=== PATIENT | male | born 1940 | race Caucasian/White ===

== ENCOUNTER → 2017-03-02 | Outpatient (CLI) | payer MEDICARE, OTHER ==
[~2017-03-02] MED LIST: ASPI-496 PO; CEPH-368 PO; CHOL200012 PO; CLOP75TA PO; DONE5TAB7 PO; DOXY100T PO; DULO20CA45 PO; FINA5TAB4 PO; GABA-827 PO; HYDR-3240 PO; INSULIN SC; ISOS60TA36 PO; METH750T87 PO; METO25TA91 PO; NITR0.4T8 SL; PANT40TA5 PO; RANO10002 PO
[2017-03-02 16:32] LABS: BLOOD UREA NITROGEN 24 mg/dL (7-18); C-REACTIVE PROTEIN, QUANT 0.37 mg/dL (0.02-0.49)
[2017-03-03 10:30] LABS: RHEUMATOID FACTOR SCREEN NEGATIVE (NEGATIVE)
== END | disposition home or self-care (01) ==
LOC: RAD 15:47
PROVIDERS: ATTEND Orthopaedic Surgery Foot and Ankle Surgery
DX: S82.872S Displaced pilon fracture of left tibia, sequela (principal); M85.80 Other specified disorders of bone density and structure, unspecified site; M25.472 Effusion, left ankle; X58.XXXS Exposure to other specified factors, sequela
CPT/HCPCS: 36415; 80048; 81374; 84550; 85025; 85651; 86038; 86140; 86430

== ENCOUNTER → 2017-03-16 | Outpatient (CLI) | payer MEDICARE, OTHER ==
[~2017-03-16] MED LIST changes: +ATOR80TA75 PO; +CHOL100018 PO; +GABA300S PO; +GALA8TAB PO; +INSU100I13 SQ; +LIRA0.6P SQ; +RANO500T2 PO
== END | disposition home or self-care (01) ==
LOC: STAR 11:18
PROVIDERS: ATTEND Orthopaedic Surgery Foot and Ankle Surgery
DX: Z01.810 Encounter for preprocedural cardiovascular examination (principal); I49.3 Ventricular premature depolarization; S82.872S Displaced pilon fracture of left tibia, sequela; E11.9 Type 2 diabetes mellitus without complications
CPT/HCPCS: 93005

== ENCOUNTER 2017-03-24 09:31 | Inpatient (IN) | payer MEDICARE, OTHER ==
[~2017-03-24] VITALS: Ht 162.6 cm; Wt 97.3 kg
[~2017-03-24 09:31] MED LIST changes: +FENTANYL PF 250 MCG/5ML ONE; +MIDAZOLAM 1 MG/ML, 2ML ONE
[2017-03-24 09:56] VITALS: BP 136/108
[2017-03-24] MEDS ORDERED: LACTATED RINGERS 1,000 ML IV SCH (10:13)
[2017-03-24] MEDS ORDERED: METOPROLOL TARTRATE 25 MG TABLET PO ONE (11:08)
[2017-03-24] MEDS ORDERED: ISOSORBIDE MONONITRATE ER 60 MG TABLET PO SCH (11:08)
[2017-03-24] MEDS ORDERED: INSULIN REGULAR 100 UNITS/ML, 3ML VIAL SQ-INSULIN ONE (11:14)
[2017-03-24] MEDS ORDERED: ROPIvacaine/PF 0.5%, 20 ML ONE (11:15)
[2017-03-24] MEDS ORDERED: BUPIVACAINE/PF 0.5% ONE (11:15)
[2017-03-24] MEDS ORDERED: INSULIN REGULAR 100 UNITS/ML, 3ML VIAL IV STA (11:27)
[2017-03-24] MEDS ORDERED: INSULIN SINGLE DOSE, ER SQ-INSULIN ONE ×2 (11:37→11:39)
[2017-03-24] MEDS ORDERED: DEXMEDETOMIDINE 200 MCG/2 ML ONE (11:37)
[2017-03-24] MEDS ORDERED: PROPOFOL 10 MG/ML, 20ML ONE (11:39)
[2017-03-24] MEDS ORDERED: INSULIN REGULAR 100 UNITS/ML, 3ML VIAL IV ONE (11:39)
[2017-03-24] MEDS ORDERED: CEFAZOLIN 1,000 MG ONE (11:39)
[2017-03-24] MEDS ORDERED: ONDANSETRON 2MG/ML, 2ML ONE (11:39)
[2017-03-24] MEDS ORDERED: MIDAZOLAM 1 MG/ML, 2ML IV PRN (12:30)
[2017-03-24] MEDS ORDERED: HYDROcodone/APAP 7.5-325MG/15ML UDC PO PRN (12:30)
[2017-03-24] MEDS ORDERED: ACETAMINOPHEN 325 MG TABLET PO PRN (12:30)
[2017-03-24] MEDS ORDERED: FENTANYL PF 100 MCG/2ML IV PRN (12:30)
[2017-03-24] MEDS ORDERED: HYDROmorphone 1 MG/ML, 1ML IV PRN (12:30)
[2017-03-24] MEDS ORDERED: EPHEDRINE 50 MG/ML, 1ML IVPush PRN (12:30)
[2017-03-24] MEDS ORDERED: OXYcodone 5 MG/5 ML ORAL.SOL UDC PO PRN ×2 (12:30→16:00)
[2017-03-24] MEDS ORDERED: hydrALAzine 20 MG/ML, 1ML IV PRN (12:30)
[2017-03-24] MEDS ORDERED: ONDANSETRON 2MG/ML, 2ML IVPush PRN (12:30)
[2017-03-24] MEDS ORDERED: PROMETHAZINE 25 MG/ML, 1ML IV PRN (12:30)
[2017-03-24] MEDS ORDERED: LABETALOL 5MG/ML, 20ML IV PRN (12:30)
[2017-03-24] MEDS ORDERED: ONDANSETRON 2MG/ML, 2ML IV PRN (16:00)
[2017-03-24] MEDS ORDERED: BISACODYL 10 MG SUPP PR PRN (16:00)
[2017-03-24] MEDS ORDERED: DIPHENHYDRAMINE 25 MG CAPSULE PO PRN (16:00)
[2017-03-24] MEDS ORDERED: VANCOMYCIN PMX 1GM/200ML 200 ML IVPB ONE (16:00)
[2017-03-24] MEDS ORDERED: SENNA/DOCUSATE TABLET PO PRN (16:00)
[2017-03-24] MEDS ORDERED: HYDROmorphone 1 MG/ML, 1ML IM PRN (16:00)
[2017-03-24] MEDS ORDERED: PROMETHAZINE 25 MG/ML, 1ML IM PRN (16:00)
[2017-03-24] MEDS ORDERED: NITROGLYCERIN 0.4 MG BOTTLE (25 TABS) SL PRN (16:30)
[2017-03-24] MEDS ORDERED: INSULIN DETEMIR 100 UNITS/ML, PEN SQ-INSULIN SCH (16:30)
[2017-03-24] MEDS: INSULIN DETEMIR 100 UNITS/ML, PEN SQ-INSULIN SCH (18:13)
[2017-03-24] MEDS: SODIUM CHLORIDE 0.9% 1,000 ML IV SCH (18:13)
[2017-03-24] MEDS: INSULIN ASPART 100 UNITS/ML, PEN SQ-INSULIN SCH ×2 (18:14→21:50)
[2017-03-24] MEDS: GABAPENTIN 300 MG CAPSULE PO SCH ×2 (18:15→21:22)
[2017-03-24 18:32] VITALS: BP 116/55
[2017-03-24] MEDS: CEFAZOLIN PMX 2GM/50ML 50 ML IVPB SCH (19:57)
[2017-03-24] MEDS ORDERED: CEFAZOLIN PMX 2GM/100ML 100 ML IVPB SCH (20:00)
[2017-03-24] MEDS: SODIUM CHLORIDE FLUSH 10ML SYR IVF SCH (21:00)
[2017-03-24] MEDS: GALANTAMINE 4 MG TABLET PO SCH (21:00)
[2017-03-24] MEDS ORDERED: ATORVASTATIN 80 MG TABLET PO SCH (21:00)
[2017-03-24] MEDS: DULOXETINE 20 MG CAPSULE.DR PO SCH (21:22)
[2017-03-24] MEDS: DOXYCYCLINE 100MG TABLET PO SCH (21:22)
[2017-03-24] MEDS: DOCUSATE 100 MG CAPSULE PO SCH (21:22)
[2017-03-25 00:38] VITALS: BP 121/64
[2017-03-25] MEDS: SODIUM CHLORIDE 0.9% 1,000 ML IV SCH (01:24)
[2017-03-25] MEDS: CEFAZOLIN PMX 2GM/50ML 50 ML IVPB SCH (03:44)
[2017-03-25 04:03] VITALS: BP 122/70
[2017-03-25] MEDS ORDERED: ENOXAPARIN 40 MG/0.4 ML SQ SCH (06:00)
[2017-03-25] MEDS: INSULIN ASPART 100 UNITS/ML, PEN SQ-INSULIN SCH ×2 (06:28→11:55)
[2017-03-25 07:53] VITALS: BP 119/66
[2017-03-25] MEDS: DOCUSATE 100 MG CAPSULE PO SCH (07:55)
[2017-03-25] MEDS: DOXYCYCLINE 100MG TABLET PO SCH (07:56)
[2017-03-25] MEDS: DULOXETINE 20 MG CAPSULE.DR PO SCH (07:57)
[2017-03-25] MEDS: GABAPENTIN 300 MG CAPSULE PO SCH (07:57)
[2017-03-25] MEDS: SODIUM CHLORIDE FLUSH 10ML SYR IVF SCH (07:58)
[2017-03-25] MEDS: INSULIN DETEMIR 100 UNITS/ML, PEN SQ-INSULIN SCH (07:59)
[2017-03-25] MEDS: GALANTAMINE 4 MG TABLET PO SCH (08:26)
[2017-03-25] MEDS ORDERED: METOPROLOL SUCCINATE 25 MG TAB.ER.24H PO SCH (09:00)
[2017-03-25] MEDS ORDERED: ISOSORBIDE MONONITRATE ER 60 MG TABLET PO SCH (09:00)
[2017-03-25] MEDS ORDERED: PANTOPROZOLE 40MG TABLET PO SCH (09:00)
[2017-03-25] MEDS ORDERED: FINASTERIDE 5 MG TABLET PO SCH (09:00)
[2017-03-25] MEDS ORDERED: METOPROLOL TARTRATE 25 MG TABLET PO SCH (09:00)
[2017-03-25] MEDS ORDERED: RANOLAZINE 500 MG TAB.ER.12H PO SCH (09:00)
[2017-03-25] MEDS ORDERED: CHOLECALCIFEROL 1,000 UNIT TABLET PO SCH (09:00)
[2017-03-25] MEDS: HYDROcodone/APAP 5/325 TABLET PO PRN ×2 (09:33→14:09)
[2017-03-25 13:20] VITALS: BP 128/65
== END 2017-03-25 15:30 | disposition home or self-care (01) | DRG 493 ==
LOC: ORIP 09:31 → 4NOR 15:02
PROVIDERS: ADMIT Orthopaedic Surgery Foot and Ankle Surgery; ATTEND Orthopaedic Surgery Foot and Ankle Surgery
PROC: 0SGG07Z Fusion of Left Ankle Joint with Autologous Tissue Substitute, Open Approach (ICD-10-PCS; 2017-03-24)
PROC: 0QPH04Z Removal of Internal Fixation Device from Left Tibia, Open Approach (ICD-10-PCS; 2017-03-24)
PROC: 0SGG04Z Fusion of Left Ankle Joint with Internal Fixation Device, Open Approach (ICD-10-PCS; principal; 2017-03-24 11:30)
DX: S82.872A Displaced pilon fracture of left tibia, initial encounter for closed fracture (principal); E87.0 Hyperosmolality and hypernatremia; E78.5 Hyperlipidemia, unspecified; E11.22 Type 2 diabetes mellitus with diabetic chronic kidney disease; E11.65 Type 2 diabetes mellitus with hyperglycemia; F32.9 Major depressive disorder, single episode, unspecified; I12.9 Hypertensive chronic kidney disease with stage 1 through stage 4 chronic kidney disease, or unspecified chronic kidney disease; K21.9 Gastro-esophageal reflux disease without esophagitis; N18.3 Chronic kidney disease, stage 3 (moderate); N40.0 Benign prostatic hyperplasia without lower urinary tract symptoms; I25.10 Atherosclerotic heart disease of native coronary artery without angina pectoris; G47.30 Sleep apnea, unspecified; Z88.2 Allergy status to sulfonamides; Z79.2 Long term (current) use of antibiotics; Z87.891 Personal history of nicotine dependence; Z88.8 Allergy status to other drugs, medicaments and biological substances
CPT/HCPCS: 36415; 76001; 82962; 83036; 87070; 87075; 87176; 87205; 88304; 88331; C1713; J0690; J1650; J1815; J2250; J2405; J2704; J2795; J3010; J3370; J3490; C1762; J7030

== ENCOUNTER 2018-11-30 05:22 | Day surgery (SDC) | payer MEDICARE, OTHER ==
[~2018-11-30] VITALS: Ht 162.6 cm; Wt 96.0 kg
[~2018-11-30 05:22] MED LIST changes: +ATOR-2 PO; -ATOR80TA75 PO; +CHOL100012 PO; -CHOL100018 PO; -CHOL200012 PO; +CHOL200074 PO; -FENTANYL PF 250 MCG/5ML ONE; -MIDAZOLAM 1 MG/ML, 2ML ONE; +NITR0.4T28 SL; -NITR0.4T8 SL
[2018-11-30] MEDS ORDERED: LACTATED RINGERS 1,000 ML IV SCH (06:04)
[2018-11-30 06:22] VITALS: BP 148/74
[2018-11-30] MEDS ORDERED: BUPIVACAINE/PF 0.5% ONE (06:57)
[2018-11-30] MEDS ORDERED: LIDOCAINE 1%, 20ML ONE (06:57)
[2018-11-30] MEDS ORDERED: FENTANYL PF 250 MCG/5ML ONE (07:14)
[2018-11-30] MEDS ORDERED: PROPOFOL 10 MG/ML, 20ML ONE ×2 (07:14→07:21)
[2018-11-30] MEDS ORDERED: MIDAZOLAM 1 MG/ML, 2ML ONE (07:14)
[2018-11-30] MEDS ORDERED: CEFAZOLIN 1,000 MG ONE (07:21)
[2018-11-30] MEDS ORDERED: DEXAMETHASONE 4 MG/ML, 1ML ONE (07:21)
[2018-11-30] MEDS ORDERED: ONDANSETRON 2MG/ML, 2ML ONE (07:21)
[2018-11-30] MEDS ORDERED: EPHEDRINE 50 MG/ML, 1ML ONE (07:21)
[2018-11-30] MEDS ORDERED: FENTANYL PF 100 MCG/2ML IV PRN (08:00)
[2018-11-30] MEDS ORDERED: OXYcodone 5 MG/5 ML ORAL.SOL UDC PO PRN (08:00)
[2018-11-30] MEDS ORDERED: PROMETHAZINE 25 MG/ML, 1ML IV PRN (08:00)
[2018-11-30] MEDS ORDERED: DIAZEPAM 5 MG/ML, 2ML IVPush PRN (08:00)
[2018-11-30] MEDS ORDERED: HYDROmorphone 2 MG/ML, 1ML IVPush PRN (08:00)
[2018-11-30] MEDS ORDERED: ACETAMINOPHEN 325 MG TABLET PO PRN (08:00)
[2018-11-30] MEDS ORDERED: hydrALAzine 20 MG/ML, 1ML IV PRN (08:00)
[2018-11-30] MEDS ORDERED: LABETALOL 5MG/ML, 20ML IV PRN (08:00)
[2018-11-30] MEDS ORDERED: MEPERIDINE/PF 25MG/0.5ML IVPush PRN (08:00)
[2018-11-30] MEDS ORDERED: ALBUTEROL SULFATE 2.5 MG/3 ML NPPB PRN (08:00)
[2018-11-30] MEDS ORDERED: KETOROLAC 30 MG/1 ML ONE (08:06)
[2018-11-30] MEDS ORDERED: OXYcodone 5 MG/5 ML ORAL.SOL UDC ONE (08:07)
[2018-11-30] MEDS ORDERED: KETOROLAC 30 MG/1 ML IVPush ONE (08:30)
[2018-11-30] MEDS ORDERED: BUPIVACAINE/PF 0.5% INFIL ONE (09:59)
== END 2018-11-30 09:40 | disposition home or self-care (01) ==
LOC: OUT 05:22
PROVIDERS: ATTEND Orthopaedic Surgery Foot and Ankle Surgery
DX: T84.84XA Pain due to internal orthopedic prosthetic devices, implants and grafts, initial encounter (principal); I25.10 Atherosclerotic heart disease of native coronary artery without angina pectoris; E11.9 Type 2 diabetes mellitus without complications; K21.9 Gastro-esophageal reflux disease without esophagitis; Z88.1 Allergy status to other antibiotic agents; Z88.8 Allergy status to other drugs, medicaments and biological substances; Z79.82 Long term (current) use of aspirin; Z87.39 Personal history of other diseases of the musculoskeletal system and connective tissue; Z98.890 Other specified postprocedural states; Z87.891 Personal history of nicotine dependence; Z72.89 Other problems related to lifestyle; Y83.8 Other surgical procedures as the cause of abnormal reaction of the patient, or of later complication, without mention of misadventure at the time of the procedure; Y92.89 Other specified places as the place of occurrence of the external cause
CPT/HCPCS: 20680; 73600; 76000; 82962; J0690; J1100; J1885; J2250; J2405; J2704; J3010; J3490; J7120

== ENCOUNTER → 2020-07-07 | Outpatient (CLI) | payer MEDICARE, OTHER ==
[~2020-07-07] MED LIST changes: +ALFU10TA PO; +ATOR80TA PO; +DULO60CA7 PO; +EMPA25TA PO; +FURO-92 PO; +GALA16CA PO; -GALA8TAB PO; +GALA8TAB8 PO; +METO25TA35 PO; -PANT40TA5 PO; +PANT40TA6 PO; +PRAZ2CAP2 PO; +PREG200C PO
[2020-07-07 13:27] LABS: BASOPHILS # (AUTO) 0.03 x10^3/uL (0-0.1); BASOPHILS % (AUTO) 0 % (0-1); EOSINOPHILS # (AUTO) 0.06 x10^3/uL (0-0.4); EOSINOPHILS % (AUTO) 1 % (1-7); LYMPHOCYTES % (AUTO) 33 % (22-44); MD NO; MEAN CORPUSCULAR HEMOGLOBIN 29.5 pg (27.5-34.5); MEAN CORPUSCULAR VOLUME 89.4 fL (81-97); MEAN PLATELET VOLUME 8.9 fL (7.4-10.4); MONOCYTES # (AUTO) 0.57 x10^3/uL (0.2-0.8); MONOCYTES % (AUTO) 9 % (2-9); NEUTROPHILS # (AUTO) 3.39 x10^3/uL (1.8-6.8); NEUTROPHILS % (AUTO) 56 % (42-75); PLATELET COUNT 164 x10^3/uL (130-400); RED BLOOD COUNT 4.68 x10^6/uL (4.38-5.82)
[2020-07-07 13:38] LABS: INTERNATIONAL NORMALIZED RATIO 1.01 (0.93-1.1); PROTHROMBIN TIME 10.4 Seconds (9.6-11.5)
[2020-07-07 13:40] LABS: ALANINE AMINOTRANSFERASE 34 U/L (12-78); ALBUMIN 3.8 g/dL (3.4-5.0); ANION GAP 6 mmol/L (5-15); CALCIUM 8.8 mg/dL (8.5-10.1); CHLORIDE 106 mmol/L (98-107); CREATININE 1.46 mg/dL (0.7-1.3)
[2020-07-07 13:42] LABS: ALKALINE PHOSPHATASE 113 U/L (45-117); BILIRUBIN,TOTAL 0.9 mg/dL (0.2-1.0); TOTAL PROTEIN 7.2 g/dL (6.4-8.2)
[2020-07-07 13:47] LABS: HCT (SEDRATE) 41.9 % (39.2-51.8)
== END | disposition home or self-care (01) ==
LOC: STAR 12:19
PROVIDERS: ATTEND Orthopaedic Surgery Orthopaedic Surgery of the Spine
DX: Z01.812 Encounter for preprocedural laboratory examination (principal); Z20.828 Contact with and (suspected) exposure to other viral communicable diseases; M43.16 Spondylolisthesis, lumbar region; M48.061 Spinal stenosis, lumbar region without neurogenic claudication; M51.36 Other intervertebral disc degeneration, lumbar region; M54.16 Radiculopathy, lumbar region; Z96.611 Presence of right artificial shoulder joint; R00.1 Bradycardia, unspecified
CPT/HCPCS: 36415; 71046; 80053; 83036; 85025; 85610; 85651; 85730; 87635; 93005